=== PATIENT | female | born 1980 | race Two or more races ===

== ENCOUNTER 2016-09-02 12:47 | Emergency (ER) | payer MEDICAID ==
[~2016-09-02] VITALS: Ht 157.5 cm; Wt 79.3 kg
[2016-09-02] MEDS ORDERED: KETOROLAC 30MG/ML VIAL IV ONE (17:15)
[2016-09-02 19:15] VITALS: BP 111/69
== END 2016-09-02 19:29 | disposition home or self-care (01) ==
LOC: ER 15:27
DX: M54.6 Pain in thoracic spine (principal)
CPT/HCPCS: 71010; 96374; 99284; J1885